=== PATIENT | female | born 1995 | race Caucasian/White ===

== ENCOUNTER 2021-05-19 17:21 | Outpatient (CLI) | payer OTHER | END 2021-05-19 20:41 | disposition home or self-care (01) | LOC: GENOP 17:21 | DX: O47.02 False labor before 37 completed weeks of gestation, second trimester (principal); O99.352 Diseases of the nervous system complicating pregnancy, second trimester; O99.342 Other mental disorders complicating pregnancy, second trimester; G43.909 Migraine, unspecified, not intractable, without status migrainosus; O23.42 Unspecified infection of urinary tract in pregnancy, second trimester; F32.A Depression, unspecified; Z3A.27 27 weeks gestation of pregnancy; N39.0 Urinary tract infection, site not specified; O99.332 Smoking (tobacco) complicating pregnancy, second trimester; F17.200 Nicotine dependence, unspecified, uncomplicated | CPT/HCPCS: 81001 ==

== ENCOUNTER 2021-05-23 11:21 | Outpatient (CLI) | payer OTHER | END 2021-05-23 12:45 | disposition home or self-care (01) | LOC: GENOP 11:21 | DX: O26.853 Spotting complicating pregnancy, third trimester (principal); O47.03 False labor before 37 completed weeks of gestation, third trimester; Z3A.31 31 weeks gestation of pregnancy | CPT/HCPCS: 81001 ==

== ENCOUNTER → 2021-06-01 | Outpatient (CLI) | payer OTHER | LOC: GENOP 18:24 | DX: O99.891 Other specified diseases and conditions complicating pregnancy (principal); R10.30 Lower abdominal pain, unspecified; M54.9 Dorsalgia, unspecified; Z3A.30 30 weeks gestation of pregnancy | CPT/HCPCS: 82731; G0463 ==

== ENCOUNTER 2021-06-21 13:26 | Outpatient (CLI) | payer OTHER | END 2021-06-21 16:42 | disposition home or self-care (01) | LOC: GENOP 13:26 | DX: O47.03 False labor before 37 completed weeks of gestation, third trimester (principal); O99.891 Other specified diseases and conditions complicating pregnancy; O99.333 Smoking (tobacco) complicating pregnancy, third trimester; N89.8 Other specified noninflammatory disorders of vagina; F17.210 Nicotine dependence, cigarettes, uncomplicated; Z3A.32 32 weeks gestation of pregnancy; O23.43 Unspecified infection of urinary tract in pregnancy, third trimester; O99.353 Diseases of the nervous system complicating pregnancy, third trimester; O99.343 Other mental disorders complicating pregnancy, third trimester; F32.A Depression, unspecified; N39.0 Urinary tract infection, site not specified; G43.909 Migraine, unspecified, not intractable, without status migrainosus | CPT/HCPCS: 81001; 82731; 83518; 87086; G0463 ==

== ENCOUNTER 2021-07-03 21:36 | Outpatient (CLI) | payer OTHER | END 2021-07-04 11:11 | disposition other institution (70) | LOC: GENOP 21:36 | DX: O60.03 Preterm labor without delivery, third trimester (principal); O99.820 Streptococcus B carrier state complicating pregnancy; O99.343 Other mental disorders complicating pregnancy, third trimester; F32.A Depression, unspecified; O99.353 Diseases of the nervous system complicating pregnancy, third trimester; O99.333 Smoking (tobacco) complicating pregnancy, third trimester; F17.200 Nicotine dependence, unspecified, uncomplicated; O23.43 Unspecified infection of urinary tract in pregnancy, third trimester; N39.0 Urinary tract infection, site not specified; Z3A.34 34 weeks gestation of pregnancy; Z20.822 Contact with and (suspected) exposure to COVID-19 | CPT/HCPCS: 36415; 82731; 83735; 96365; 96366; 96367; 96372; 96375; J0610; J0702; J2300; J2405; J3105; J3475; Q0177; U0002 ==